=== PATIENT | male | born 1965 | race Caucasian/White ===

== ENCOUNTER 2019-08-19 11:32 | Outpatient (CLI) | payer OTHER ==
--- NOTE | 2019-08-20 10:49 | Ultrasound Report ---
Reason: SINGLE THYROID NODULE Procedure Date: 08/19/2019 Accession Number: [id number] / [id number] Procedure: US - Head or Neck Soft Tissue CPT Code: Final Report FULL RESULT: EXAM: THYROID ULTRASOUND EXAM DATE: 08/19/2019 12:08 PM. CLINICAL HISTORY: Follow-up thyroid nodule. COMPARISON: 06/15/2012. TECHNIQUE: Real time sonographic imaging of the thyroid was performed by the banner painter. Multiple cordage sales representative static images were saved for review. FINDINGS: THYROID GLAND: Right Lobe: 4.8 x 1.4 x 1.2 cm, volume 4.2 cc. Normal background echotexture. Right Lobe Nodules: None. Left Lobe: 4.3 x 2.9 x 1.1 cm, volume 7.2 cc. Normal background echotexture. Left Lobe Nodules: 1. Hypoechoic solid posterior mid gland nodule 2.4 x 2.0 x 1.3 cm. Previously measured 1.3 x 1.1 x 1.0 cm. 2. Hypoechoic solid upper pole nodule 0.6 x 0.6 x 0.5 cm. Isthmus: 0.5 cm AP. Normal background echotexture. Isthmic Nodules: None. LYMPH NODES: No adenopathy demonstrated in the central or lateral compartment. OTHER: None. IMPRESSION: 1. Slowly enlarging 2.4 cm solid left mid thyroid nodule increased from 1.3 cm on a 2013 exam. Correlation with biopsy results suggested. 2. Newly identified 0.6 cm left upper pole solid nodule. Though this does not meet ANGELO criteria for recommended biopsy at this time, sonographic follow-up in 12 months may be considered. Management recommendations are based on 2015 [place] [employer] Management Guidelines for Adult Patients with Thyroid Nodules and Differentiated Thyroid Cancer. [facility]
== END 2019-08-19 11:33 | disposition home or self-care (01) ==
LOC: DI 11:32
PROVIDERS: ATTEND Family Medicine
DX: E04.2 Nontoxic multinodular goiter (principal)
CPT/HCPCS: 76536

== ENCOUNTER 2019-08-24 06:48 | Outpatient (CLI) | payer OTHER ==
--- NOTE | 2019-08-24 07:36 | Ultrasound Report ---
Reason: ABD PX Procedure Date: 08/24/2019 Accession Number: [id number] / [id number] Procedure: US - Abdomen Complete CPT Code: Final Report FULL RESULT: EXAM: ABDOMEN ULTRASOUND EXAM DATE: 08/24/2019 07:17 AM. CLINICAL HISTORY: Abdominal pain. COMPARISON: 07/22/2012 9:07 AM. TECHNIQUE: Real-time scanning was performed with static images obtained. FINDINGS: Liver: There is fatty infiltration of the liver, consistent with fatty infiltration. The liver measures 14.7 cm. Main portal vein flow: Hepatopetal. Gallbladder: Normal. No stones, wall thickening, or sonographic Krishnamurthy's sign. Biliary System: Common bile duct measures 4.7 mm. No intrahepatic or extrahepatic ductal dilatation. Pancreas: Visualized portion is unremarkable. Kidneys: Right: 12.0 cm longitudinally. Normal. No contour-deforming mass, stones, or hydronephrosis. Left: 11.7 cm longitudinally. Normal. No contour-deforming mass, stones, or hydronephrosis. Spleen: 10.3 cm. Normal in size and echotexture. Aorta and Inferior Vena Cava: Unremarkable. Other: None. IMPRESSION: Fatty infiltration of the liver. [facility]
== END 2019-08-24 06:49 | disposition home or self-care (01) ==
LOC: DI 06:48
PROVIDERS: ATTEND Nurse Practitioner Family
DX: K76.0 Fatty (change of) liver, not elsewhere classified (principal)
CPT/HCPCS: 76700